=== PATIENT | male | born 1945 | race Caucasian/White ===

== ENCOUNTER 2018-01-09 09:13 | Emergency (ER) | payer OTHER ==
[~2018-01-09] VITALS: Ht 165.1 cm; Wt 61.2 kg
[~2018-01-09 09:13] MED LIST: CALTRATE 600600 MG PO; CATAFLAM50 MG PO; FENOFIBRATE67 MG PO; IMODIUM A-D2 MG; INDUR PO; METFORMIN HCL500 MG PO; NABUMETONE500 MG PO; PERCOCET 5/3251 TAB PO; ULTRACET PO; VITAMIN D400 UNI2 PO; ZESTRIL10 M1 PO; ZOCOR40 MG PO
[2018-01-09] MEDS ORDERED: TAMS0.4C PO (13:31)
[2018-01-09] MEDS ORDERED: KETO10TA2 PO (13:31)
== END 2018-01-09 13:39 | disposition home or self-care (01) ==
LOC: ER 09:13
DX: N40.0 Benign prostatic hyperplasia without lower urinary tract symptoms (principal)

== ENCOUNTER 2018-01-11 07:14 | Outpatient (CLI) | payer OTHER ==
[~2018-01-11 07:14] MED LIST changes: +KETO10TA2 PO; +TAMS0.4C PO
== END 2018-01-11 07:27 | disposition home or self-care (01) ==
LOC: SONOGRAMA 07:14
DX: N41.8 Other inflammatory diseases of prostate (principal); M54.5 Low back pain

== ENCOUNTER 2018-08-18 06:55 | Outpatient (CLI) | payer OTHER ==
[2018-08-23] MEDS ORDERED: NEURONTIN300 MG PO (09:57)
[2018-08-23] MEDS ORDERED: FOLIC ACID1 MG PO (09:57)
[2018-08-25] MEDS ORDERED: PERCOCET 5-3251 EACH PO (08:08)
[2018-08-25] MEDS ORDERED: DIBUCAINE30 GM TOP (08:08)
== END 2018-08-18 07:08 | disposition home or self-care (01) ==
LOC: RAD 06:55 → LAB 06:55
DX: K51.811 Other ulcerative colitis with rectal bleeding (principal); K62.82 Dysplasia of anus

== ENCOUNTER → 2018-08-23 11:01 | Outpatient (CLI) | payer OTHER ==
[~2018-08-23 11:01] MED LIST changes: +DIBUCAINE30 GM TOP; +FOLIC ACID1 MG PO; +NEURONTIN300 MG PO; +PERCOCET 5-3251 EACH PO
== END | disposition home or self-care (01) ==
LOC: LAB 11:01
DX: E78.89 Other lipoprotein metabolism disorders (principal); E11.51 Type 2 diabetes mellitus with diabetic peripheral angiopathy without gangrene; M89.8X8 Other specified disorders of bone, other site; E11.42 Type 2 diabetes mellitus with diabetic polyneuropathy; N41.8 Other inflammatory diseases of prostate; N41.1 Chronic prostatitis; A67 Pinta [carate]; Z93.3 Colostomy status; C49.6 Malignant neoplasm of connective and soft tissue of trunk, unspecified; E11.319 Type 2 diabetes mellitus with unspecified diabetic retinopathy without macular edema; I11.9 Hypertensive heart disease without heart failure; Z79.84 Long term (current) use of oral hypoglycemic drugs; K51.40 Inflammatory polyps of colon without complications; K60.3 Anal fistula; Z01.810 Encounter for preprocedural cardiovascular examination; Z68.21 Body mass index [BMI] 21.0-21.9, adult

== ENCOUNTER 2018-08-25 05:32 | Day surgery (SDC) | payer OTHER ==
[~2018-08-25 05:32] MED LIST changes: -DIBUCAINE30 GM TOP; -PERCOCET 5-3251 EACH PO
[2018-08-25] MEDS ORDERED: PERCOCET 5-3251 EACH PO ×2 (08:08)
[2018-08-25] MEDS ORDERED: DIBUCAINE30 GM TOP ×2 (08:08)
== END 2018-08-25 15:15 | disposition home or self-care (01) ==
LOC: CIR.AMB 05:32
DX: C20 Malignant neoplasm of rectum (principal)

== ENCOUNTER → 2018-10-03 06:40 | Outpatient (CLI) | payer OTHER ==
[~2018-10-03 06:40] MED LIST changes: +CALTRATE 600 +1 EACH PO; +DIALYVITE 800-1 EACH PO; +DIBUCAINE30 GM TOP; +IMODIUM PO; +PERCOCET 5-3251 EACH PO
== END | disposition home or self-care (01) ==
LOC: LAB 06:40
DX: K51.811 Other ulcerative colitis with rectal bleeding (principal); K62.82 Dysplasia of anus; C20 Malignant neoplasm of rectum

== ENCOUNTER 2018-10-06 05:56 | Day surgery (SDC) | payer OTHER ==
[2018-10-06] MEDS ORDERED: KETO10TA2 PO (09:23)
[2018-10-06] MEDS ORDERED: ULTRACET PO (09:23)
[2018-10-06] MEDS ORDERED: DIBUCAINE30 GM TOP (09:23)
== END 2018-10-06 12:50 | disposition home or self-care (01) ==
LOC: CIR.AMB 05:56
DX: C20 Malignant neoplasm of rectum (principal)
CPT/HCPCS: 36561; C1751

== ENCOUNTER 2020-09-26 06:00 | Day surgery (SDC) | payer OTHER ==
[~2020-09-26 06:00] MED LIST changes: +JANUMET 50-5001 EACH PO
[2020-09-26] MEDS ORDERED: ULTRACET PO (08:30)
== END 2020-09-26 10:30 | disposition home or self-care (01) ==
LOC: CIR.AMB 06:00
PROVIDERS: ATTEND Surgery
DX: C20 Malignant neoplasm of rectum (principal); Z20.822 Contact with and (suspected) exposure to COVID-19

== ENCOUNTER 2021-04-21 06:00 | Day surgery (SDC) | payer OTHER ==
[2021-04-21] MEDS ORDERED: PERCOCET 5-3251 EACH PO (13:43)
[2021-04-21] MEDS ORDERED: CENTANY30 GM TOP (13:44)
== END 2021-04-21 16:15 | disposition home or self-care (01) ==
LOC: CIR.AMB 06:00
PROVIDERS: ATTEND Surgery
DX: C21.0 Malignant neoplasm of anus, unspecified (principal); K51.90 Ulcerative colitis, unspecified, without complications

== ENCOUNTER 2021-06-09 07:46 | Day surgery (SDC) | payer OTHER ==
[~2021-06-09 07:46] MED LIST changes: +CARDURA XL4 MG PO; +CENTANY30 GM TOP; +JANUVIA25 MG PO
[2021-06-09] MEDS ORDERED: ULTRACET PO (11:48)
== END 2021-06-09 13:35 | disposition home or self-care (01) ==
LOC: CIR.AMB 07:46
PROVIDERS: ATTEND Surgery
DX: C20 Malignant neoplasm of rectum (principal); I10 Essential (primary) hypertension; Z87.891 Personal history of nicotine dependence